=== PATIENT | female | born 2000 | race Caucasian/White ===

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

== ENCOUNTER 2018-03-20 12:34 | Inpatient (IN) | payer OTHER ==
[2018-03-20] MEDS ORDERED: SODIUM CHLORIDE 0.9% 1,000 ML IV STA ×2 (13:44)
[2018-03-20] MEDS ORDERED: KETOROLAC 30 MG/ML 1 ML VIAL IVP STA (13:44)
--- NOTE | 2018-03-20 13:46 | ED ---
Recheck HPI - General Chief Complaint: Recheck/Abnormal Lab/Rx Stated Complaint: Hyperglycemia Time Seen by Provider: 03/20/18 13:30 Source: patient, family, RN notes reviewed, old records reviewed Mode of arrival: ambulatory Limitations: no limitations - History of Present Illness Initial Comments: Patient is a 17-year-old female presents emergency Department with chief complaint of ketones in her urine and high blood sugar levels. She reports that she's been feeling ill complaining of left-sided abdominal pain for the past 2 days. She took her blood sugar this morning was 350. The last time she is in DKA she had similar blood sugars around 350 to 250s. She states she checked her urine today and there she had 4+ ketones in her urine. She reports she's had no diarrhea or vomiting. She states that she has had no chest pain shortness of breath or painful urination. She does have an IUD last menstrual period was in the middle of last month. She reports there just irregular. She states that she typically does get left-sided abdominal pain and occasional chest pain which she is in DKA. She is not corrected with insulin yet today. - Related Data Home Medications Medication Instructions Recorded Confirmed Insulin Aspart [NovoLOG Flexpen] See Protocol SQ AC-TID 09/06/16 03/20/18 ALPRAZolam [Xanax] 0.25 mg PO DAILY PRN 07/18/17 03/20/18 lamoTRIgine [LaMICtal] 25 mg PO HS 07/18/17 03/20/18 Insulin Glargine,Hum.rec.anlog 30 unit SQ DAILY 03/20/18 03/20/18 [Basaglar Kwikpen U-100] busPIRone HCL 15 mg PO BID 03/20/18 03/20/18 Allergies Allergy/AdvReac Type Severity Reaction Status Date / Time insulin detemir Allergy Rash/Hives Verified 03/20/18 13:39 [From Levemir] Sulfa (Sulfonamide Allergy Rash/Hives Verified 03/20/18 13:39 Antibiotics) Review of Systems ROS Statement: Those systems with pertinent positive or pertinent negative responses have been documented in the HPI. ROS Other: All systems not noted in ROS Statement are negative. Past Medical History Past Medical History: Diabetes Mellitus, GERD/Reflux Additional Past Medical History / Comment(s): depression/anxiety History of Any Multi-Drug Resistant Organisms: None Reported Past Surgical History: No Surgical Hx Reported Past Psychological History: Anxiety, Bipolar, Depression Smoking Status: Never smoker Past Alcohol Use History: None Reported Past Drug Use History: Marijuana - Past Family History Mother Additional Family Medical History / Comment(s): anxiety, depression, migraines, lower esophageal spasms General Exam - General Exam Comments Initial Comments: This is a 17-year-old female. Alert and oriented. No acute distress. Limitations: no limitations General appearance: alert, in no apparent distress Head exam: Present: atraumatic, normocephalic, normal inspection Eye exam: Present: normal appearance, PERRL, EOMI. Absent: scleral icterus, conjunctival injection, periorbital swelling ENT exam: Present: normal exam, mucous membranes moist Neck exam: Present: normal inspection. Absent: tenderness, meningismus, lymphadenopathy Respiratory exam: Present: normal lung sounds bilaterally. Absent: respiratory distress, wheezes, rales, rhonchi, stridor Cardiovascular Exam: Present: regular rate, normal rhythm, normal heart sounds. Absent: systolic murmur, diastolic murmur, rubs, gallop, clicks GI/Abdominal exam: Present: soft, tenderness (Minimal left upper quadrant tenderness.), normal bowel sounds. Absent: distended, guarding, rebound, rigid Extremities exam: Present: normal inspection, full ROM, normal capillary refill. Absent: tenderness, pedal edema, joint swelling, calf tenderness Back exam: Present: normal inspection Neurological exam: Present: alert, oriented X3, CN II-XII intact Psychiatric exam: Present: normal affect, normal mood Course Vital Signs 03/20/18 03/20/18 13:17 14:12 Temperature 98.1 F 97.9 F Pulse Rate 83 75 Respiratory 20 16 Rate Blood Pressure 113/80 121/79 O2 Sat by Pulse 100 99 Oximetry Medical Decision Making - Medical Decision Making 17-year-old female type I diabetic presents emergency murmurs day with elevated blood sugar 350 today. She reports she's been feeling nauseated. No specific vomiting. She states is more fatigued. She reports she's had some dull left upper quadrant abdominal pain. These are all symptoms and signs that she started have DKA. Patient checked her urine today does have 4+ ketones in her urine. Patient was given a liter bolus, and laboratory obtained. Patient has a mild decrease in her CO2 of 20. 4+ ketones and 4+ glucose within her urine. Patient did have a positive acetone. Patient was given insulin bolus, started on DKA protocol. At this time and that the Patient under Dr. Winkler. - Lab Data Result diagrams: 03/20/18 13:39 03/20/18 13:39 Lab Results 03/20/18 03/20/18 03/20/18 Range/Units 13:38 13:39 13:39 WBC 7.0 (4.0-11.0) k/uL RBC 4.99 (3.80-5.40) m/uL Hgb 14.8 (11.4-16.0) gm/dL Hct 45.1 (34.0-46.0) % MCV 90.4 (80.0-100.0) fL MCH 29.7 (25.0-35.0) pg MCHC 32.9 (31.0-37.0) g/dL RDW 13.1 (11.5-15.5) % Plt Count 298 (150-450) k/uL Neutrophils % 57 % Lymphocytes % 33 % Monocytes % 4 % Eosinophils % 4 % Basophils % 1 % Neutrophils # 4.0 (1.3-7.7) k/uL Lymphocytes # 2.3 (1.0-4.8) k/uL Monocytes # 0.3 (0-1.0) k/uL Eosinophils # 0.3 (0-0.7) k/uL Basophils # 0.1 (0-0.2) k/uL Sodium 140 (137-145) mmol/L Potassium 4.4 (3.5-5.1) mmol/L Chloride 103 (98-107) mmol/L Carbon Dioxide 20 L (22-30) mmol/L Anion Gap 17 mmol/L BUN 13 (7-17) mg/dL Creatinine 0.59 (0.52-1.04) mg/dL Est GFR (CKD-EPI)AfAm >90 (>60 ml/min/1.73 sqM) Est GFR (CKD-EPI)NonAf >90 (>60 ml/min/1.73 sqM) Glucose 314 H (74-99) mg/dL POC Glucose (mg/dL) 292 H (75-99) mg/dL POC Glu Software Support Representative ID Kan Resendiz Calcium 10.5 H (8.4-10.2) mg/dL Total Bilirubin 1.0 (0.2-1.3) mg/dL AST 13 L (14-36) U/L ALT 20 (9-52) U/L Alkaline Phosphatase 91 (38-126) U/L Total Protein 7.8 (6.3-8.2) g/dL Albumin 4.9 (3.5-5.0) g/dL Amylase 49 (30-110) U/L Lipase 32 (23-300) U/L Urine Color Urine Appearance (Clear) Urine pH (5.0-8.0) Ur Specific Amo (1.001-1.035) Urine Protein (Negative) Urine Glucose (UA) (Negative) Urine Ketones (Negative) Urine Blood (Negative) Urine Nitrite (Negative) Urine Bilirubin (Negative) Urine Urobilinogen (<2.0) mg/dL Ur Leukocyte Esterase (Negative) Urine RBC (0-5) /hpf Urine WBC (0-5) /hpf Ur Squamous Epith Cells (0-4) /hpf Urine HCG, Qual (Not Detectd) Acetone, Qual Positive (Negative) 03/20/18 03/20/18 Range/Units 14:28 14:28 WBC (4.0-11.0) k/uL RBC (3.80-5.40) m/uL Hgb (11.4-16.0) gm/dL Hct (34.0-46.0) % MCV (80.0-100.0) fL MCH (25.0-35.0) pg MCHC (31.0-37.0) g/dL RDW (11.5-15.5) % Plt Count (150-450) k/uL Neutrophils % % Lymphocytes % % Monocytes % % Eosinophils % % Basophils % % Neutrophils # (1.3-7.7) k/uL Lymphocytes # (1.0-4.8) k/uL Monocytes # (0-1.0) k/uL Eosinophils # (0-0.7) k/uL Basophils # (0-0.2) k/uL Sodium (137-145) mmol/L Potassium (3.5-5.1) mmol/L Chloride (98-107) mmol/L Carbon Dioxide (22-30) mmol/L Anion Gap mmol/L BUN (7-17) mg/dL Creatinine (0.52-1.04) mg/dL Est GFR (CKD-EPI)AfAm (>60 ml/min/1.73 sqM) Est GFR (CKD-EPI)NonAf (>60 ml/min/1.73 sqM) Glucose (74-99) mg/dL POC Glucose (mg/dL) (75-99) mg/dL POC Glu Software Support Representative ID Calcium (8.4-10.2) mg/dL Total Bilirubin (0.2-1.3) mg/dL AST (14-36) U/L ALT (9-52) U/L Alkaline Phosphatase (38-126) U/L Total Protein (6.3-8.2) g/dL Albumin (3.5-5.0) g/dL Amylase (30-110) U/L Lipase (23-300) U/L Urine Color Light Yellow Urine Appearance Clear (Clear) Urine pH 6.0 (5.0-8.0) Ur Specific Amo 1.037 H (1.001-1.035) Urine Protein 2+ H (Negative) Urine Glucose (UA) 4+ H (Negative) Urine Ketones 4+ H (Negative) Urine Blood Negative (Negative) Urine Nitrite Negative (Negative) Urine Bilirubin Negative (Negative) Urine Urobilinogen <2.0 (<2.0) mg/dL Ur Leukocyte Esterase Negative (Negative) Urine RBC 1 (0-5) /hpf Urine WBC 1 (0-5) /hpf Ur Squamous Epith Cells 3 (0-4) /hpf Urine HCG, Qual Not Detected (Not Detectd) Acetone, Qual (Negative) Disposition Clinical Impression: DKA (diabetic ketoacidoses) Disposition: HOME SELF-CARE Condition: Good Is patient prescribed a controlled substance at d/c from ED?: No Referrals: None,Stated [Primary Care Provider] - 1-2 days Time of Disposition: 15:47
[2018-03-20 13:55] LABS: Glucose,Whole Blood 292 mg/dL (75-99)
[2018-03-20 14:10] LABS: Basophils # (A) 0.1 k/uL (0-0.2); Basophils % (A) 1 %; Eosinophils # (A) 0.3 k/uL (0-0.7); Eosinophils % (A) 4 %; HCT 45.1 % (34.0-46.0); HGB 14.8 gm/dL (11.4-16.0); Lymphocytes # (A) 2.3 k/uL (1.0-4.8); Lymphocytes % (A) 33 %; MCH 29.7 pg (25.0-35.0); MCHC 32.9 g/dL (31.0-37.0); MCV 90.4 fL (80.0-100.0); Mean Platelet Volume 7.5; Monocytes # (A) 0.3 k/uL (0-1.0); Monocytes % (A) 4 %; Neutrophils % (A) 57 %; Platelet Count 298 k/uL (150-450); RBC 4.99 m/uL (3.80-5.40); RDW 13.1 % (11.5-15.5)
[2018-03-20 15:11] LABS: ALT 20 U/L (9-52); AST 13 U/L (14-36); Albumin 4.9 g/dL (3.5-5.0); Alkaline Phosphatase 91 U/L (38-126); Amylase 49 U/L (30-110); Anion Gap 17 mmol/L; Blood Urea Nitrogen 13 mg/dL (7-17); Calcium 10.5 mg/dL (8.4-10.2); Carbon Dioxide 20 mmol/L (22-30); Chloride 103 mmol/L (98-107); Glucose 314 mg/dL (74-99); Lipase 32 U/L (23-300); Potassium 4.4 mmol/L (3.5-5.1); Sodium 140 mmol/L (137-145); Total Protein 7.8 g/dL (6.3-8.2)
[2018-03-20 15:11] LABS: Appearance,Urine Clear (Clear); Bilirubin,Urine Negative (Negative); Blood,Urine Negative (Negative); Color,Urine Light Yellow; Glucose,Urine (UA) 4+ (Negative); Leukocyte Esterase,Urine Negative (Negative); Nitrite,Urine Negative (Negative); Protein,Urine 2+ (Negative); RBC,Urine 1 /hpf (0-5); Specific Gravity,Urine 1.037 (1.001-1.035); Squamous Epithelial Cell,Urine 3 /hpf (0-4); Urobilinogen,Urine <2.0 mg/dL (<2.0); WBC,Urine 1 /hpf (0-5)
[2018-03-20] MEDS ORDERED: Magnesium Replacement Protocol 1 EACH MISC MISCELLANE PRN (15:23)
[2018-03-20] MEDS ORDERED: Potassium Replacement Protocol 1 EACH MISC MISCELLANE PRN (15:23)
[2018-03-20] MEDS ORDERED: INSULIN REGULAR BOLUS (FROM DRIP BAG) IV ONE (15:23)
[2018-03-20 15:30] LABS: Ketones,Urine 4+ (Negative)
[2018-03-20] MEDS ORDERED: INSULIN REGULAR 100 UNIT in SODIUM CHLORIDE 0.9% 100 ML IV SCH (15:30)
[2018-03-20] MEDS ORDERED: SODIUM CHLORIDE 0.9% 1,000 ML IV SCH (15:30)
[2018-03-20] MEDS ORDERED: ONDANSETRON 4 MG/2 ML VIAL IVP STA (15:45)
[2018-03-20] MEDS ORDERED: ONDANSETRON 4 MG/2 ML VIAL IVP PRN (15:47)
[2018-03-20] MEDS ORDERED: IBUPROFEN 400 MG TAB PO PRN (15:47)
[2018-03-20] MEDS ORDERED: NALOXONE 0.4 MG/ML 1 ML VIAL IV PRN (15:47)
[2018-03-20] MEDS ORDERED: KETOROLAC 30 MG/ML 1 ML VIAL IVP PRN (15:47)
[2018-03-20] MEDS ORDERED: ACETAMINOPHEN TAB 325 MG TAB PO PRN (15:47)
[2018-03-20] MEDS ORDERED: ALPRAZolam 0.25 MG TAB PO PRN (15:51)
[2018-03-20] MEDS ORDERED: D5-0.45% NACL WITH KCL 20MEQ/L 1,000 ML IV SCH (16:00)
[2018-03-20 16:42] LABS: Glucose,Whole Blood 205 mg/dL (75-99)
--- NOTE | 2018-03-20 17:29 | P.HPIM ---
History of Present Illness H&P Date: 03/20/18 Chief Complaint: abdominal pain Patient is a 17-year-old female with a history of diabetes mellitus type 1 diagnosed at age 13 currently controlled with Lantus 30 units in the morning, carb counting, and corrective insulin, he also has a history of bipolar 2 with depression and anxiety. She presented to the hospital with complaints of abdominal pain. In the ER she underwent an extensive evaluation. Her vital signs within normal limits. Laboratory analysis was consistent with DKA. She was found have 4+ ketones in her urine acetone was positive. Anion gap was 17. She was given 1 L of normal saline in the ER and was started on an insulin drip. We were asked to admit her to the selective care unit. Patient seen and examined at bedside in the emergency department. She reports that yesterday she injected her Lantus as normal in the morning. She then started having sugars that were high for her anywhere from 08/24/2019. She began feeling abnormal. She states that she feels she may have injected into affect is positive were inappropriately injected. She felt hot nauseous all day yesterday. She increased her mouth correction shots and attempted to increase her fluid intake. This morning she woke up and her blood sugar was 344. She then tested her urine and found positive ketones. She started having her typical signs of DKA which include left-sided flank pain that wraps around to the front of her stomach and nausea. She does not give herself her Lantus injection today and presented immediately to the hospital. She reports that her sugars typically run 180-220. She feels symptomatically hypoglycemic at a blood sugar of 140 or less. She's had diabetes age of 13. Up until one year ago she was seen at the endocrinology clinic [facility]. She now sees Dr. Miller out of Dr. Leiva's office. She reports no history of diabetic retinopathy or nephropathy. She denies any recent cough, cold, fever, flu, or changes in diet. She denies any chest pain, shortness of breath, nausea, or vomiting at this point in time. After receiving 1 L of fluid she is feeling much improved. Review of Systems Pertinent positives and negatives as discussed in HPI, a complete review of systems was performed and all other systems are negative. Past Medical History Past Medical History: Diabetes Mellitus, GERD/Reflux Additional Past Medical History / Comment(s): depression/anxiety History of Any Multi-Drug Resistant Organisms: None Reported Past Surgical History: No Surgical Hx Reported Past Psychological History: Anxiety, Bipolar, Depression Smoking Status: Never smoker Past Alcohol Use History: None Reported Past Drug Use History: Marijuana Additional History: Lives with her mother, not currently employed - Past Family History Mother Additional Family Medical History / Comment(s): anxiety, depression, migraines, lower esophageal spasms Medications and Allergies Home Medications Medication Instructions Recorded Confirmed Type Insulin Aspart [NovoLOG Flexpen] See Protocol SQ AC-TID 09/06/16 03/20/18 History ALPRAZolam [Xanax] 0.25 mg PO DAILY PRN 07/18/17 03/20/18 History lamoTRIgine [LaMICtal] 25 mg PO HS 07/18/17 03/20/18 History Insulin Glargine,Hum.rec.anlog 30 unit SQ DAILY 03/20/18 03/20/18 History [Basaglar Kwikpen U-100] busPIRone HCL 15 mg PO BID 03/20/18 03/20/18 History Allergies Allergy/AdvReac Type Severity Reaction Status Date / Time insulin detemir Allergy Rash/Hives Verified 03/20/18 13:39 [From Levemir] Sulfa (Sulfonamide Allergy Rash/Hives Verified 03/20/18 13:39 Antibiotics) Physical Exam Osteopathic Statement: *. No significant issues noted on an osteopathic structural exam other than those noted in the History and Physical/Consult. Vitals: Vital Signs Temp Pulse Resp BP Pulse Ox 03/20/18 17:00 98.7 F 67 16 118/69 98 03/20/18 16:07 99 F 86 18 112/65 99 03/20/18 14:12 97.9 F 75 16 121/79 99 03/20/18 13:17 98.1 F 83 20 113/80 100 Intake and Output 03/20/18 03/20/18 03/20/18 06:59 14:59 22:59 Intake Total 6.148 Balance 6.148 Intake: Intake, IV Titration 6.148 Amount Insulin Regular 100 unit 6.148 In Sodium Chloride 0.9% 100 ml @ 0.1 UNITS/KG/HR 6.36 mls/hr IV .[id number] [facility] Rx#:[id number] Other: Weight 63.004 kg General: Ill appearing, mild distress, appears at stated age, normal weight Derm: no unusual rashes/lesions no unusual ecchymoses, warm, dry Head: atraumatic, normocephalic, symmetric Eyes: EOMI, no lid lag, anicteric sclera, pupils equal round reactive to light ENT: Nose and ears atraumatic, no thrush, no pharyngeal erythema Neck: No thyromegaly, no cervical lymphadenopathy, trachea midline, supple Mouth: no lip lesion, dry mucous membranes Cardiovascular: S1S2 reg, no murmur, positive posterior tibial pulse bilateral, no edema, capillary refill less than 2 seconds Lungs: CTA bilateral, no rhonchi, no rales , no accessory muscle use Abdominal: soft, tenderness to palpation left flank and. Emboli:, no guarding, no appreciable organomegaly, normal bowel sounds Ext: no gross muscle atrophy, muscle strength 5 out of 5 in all 4 extremities grossly, no contractures, Neuro: CN II-XI grossly intact, light touch intact all 4 extremities, finger to nose within normal limits, Psych: Alert, oriented, appropriate affect Results CBC & Chem 7: 03/20/18 13:39 03/20/18 13:39 Labs: Abnormal Lab Results - Last 24 Hours (Table) 03/20/18 03/20/18 03/20/18 Range/Units 13:38 13:39 14:28 Carbon Dioxide 20 L (22-30) mmol/L Glucose 314 H (74-99) mg/dL POC Glucose (mg/dL) 292 H (75-99) mg/dL Calcium 10.5 H (8.4-10.2) mg/dL AST 13 L (14-36) U/L Ur Specific [place] 1.037 H (1.001-1.035) Urine Protein 2+ H (Negative) Urine Glucose (UA) 4+ H (Negative) Urine Ketones 4+ H (Negative) 03/20/18 Range/Units 16:37 Carbon Dioxide (22-30) mmol/L Glucose (74-99) mg/dL POC Glucose (mg/dL) 205 H (75-99) mg/dL Calcium (8.4-10.2) mg/dL AST (14-36) U/L Ur Specific [place] (1.001-1.035) Urine Protein (Negative) Urine Glucose (UA) (Negative) Urine Ketones (Negative) Thrombosis Risk Factor Assmnt - DVT/VTE Prophylaxis DVT/VTE Prophylaxis: Low risk, early ambulation encouraged Assessment and Plan Assessment: Mild DKA - Continue with DKA protocol -Repeat basic metabolic profile now, if anion gap is closed then would consider transition off insulin drip -Patient is ALLERGIC to Levemir and mother will bring in her Lantus from home -Follow blood sugars every hour -Decrease insulin drip to 4 units per hour -Follow basic metabolic profile -Check hemoglobin A1c Diabetes mellitus type 1 -Treatment of DKA as outlined above Bipolar 2 -Continue with home medications The patient is admitted with an anticipated greater than 2 midnight stay for evaluation of DKA. Surrogate decision-maker: Mother-Hellen CODE STATUS: Full DVT prophylaxis: SCDs and early ambulation Discussed with: Patient, mother, ED physician, and ED nursing Anticipated discharge date: 24-[address]: Home A total of 65 minutes was spent on the care of this complex patient more than 50 % of the time was spent in counseling and care coordination.
[2018-03-20 17:54] LABS: Glucose,Whole Blood 156 mg/dL (75-99)
[2018-03-20 18:51] LABS: Anion Gap 12 mmol/L; Blood Urea Nitrogen 13 mg/dL (7-17); Carbon Dioxide 23 mmol/L (22-30); Chloride 107 mmol/L (98-107); Glucose 142 mg/dL (74-99); Phosphorus 2.3 mg/dL (2.5-4.5); Sodium 142 mmol/L (137-145)
[2018-03-20 19:05] LABS: Anion Gap 11 mmol/L; Blood Urea Nitrogen 13 mg/dL (7-17); Calcium 9.6 mg/dL (8.4-10.2); Carbon Dioxide 23 mmol/L (22-30); Chloride 108 mmol/L (98-107); Glucose 145 mg/dL (74-99); Phosphorus 2.3 mg/dL (2.5-4.5); Sodium 142 mmol/L (137-145)
[2018-03-20 19:05] LABS: Glucose,Whole Blood 215 mg/dL (75-99)
[2018-03-20] MEDS: SODIUM CHLORIDE 0.45% 1,000 ML IV SCH (20:06)
[2018-03-20] MEDS: INSULIN ASPART 100 UNIT/ML 1 ML 10 ML VIAL SQ SCH (20:28)
[2018-03-20] MEDS: lamoTRIgine 25 MG TAB PO SCH (20:33)
[2018-03-20] MEDS: busPIRone HCl 10 MG TAB PO SCH (20:49)
[2018-03-20 20:50] LABS: Glucose,Whole Blood 181 mg/dL (75-99)
[2018-03-20 22:30] LABS: Anion Gap 10 mmol/L; Blood Urea Nitrogen 17 mg/dL (7-17); Calcium 9.4 mg/dL (8.4-10.2); Carbon Dioxide 21 mmol/L (22-30); Chloride 109 mmol/L (98-107); Glucose 166 mg/dL (74-99); Sodium 140 mmol/L (137-145)
[2018-03-20 22:40] LABS: Glucose,Whole Blood 176 mg/dL (75-99)
[2018-03-21 01:28] LABS: Glucose,Whole Blood 199 mg/dL (75-99)
[2018-03-21] MEDS: INSULIN ASPART 100 UNIT/ML 1 ML 10 ML VIAL SQ SCH ×2 (01:44→07:26)
[2018-03-21] MEDS: SODIUM CHLORIDE 0.45% 1,000 ML IV SCH ×2 (02:00→09:23)
[2018-03-21 02:53] LABS: Glucose,Whole Blood 179 mg/dL (75-99)
[2018-03-21 04:26] LABS: Hemoglobin A1C 11.1 % (4.0-6.0)
[2018-03-21 04:56] LABS: Glucose,Whole Blood 147 mg/dL (75-99)
[2018-03-21 05:41] VITALS: RESP 16
[2018-03-21 06:05] LABS: HCT 36.6 % (34.0-46.0); HGB 12.1 gm/dL (11.4-16.0); MCH 30.2 pg (25.0-35.0); MCV 91.5 fL (80.0-100.0); Mean Platelet Volume 6.9; Platelet Count 267 k/uL (150-450); RDW 13.1 % (11.5-15.5)
[2018-03-21 06:17] LABS: Anion Gap 7 mmol/L; Blood Urea Nitrogen 16 mg/dL (7-17); Calcium 9.3 mg/dL (8.4-10.2); Carbon Dioxide 23 mmol/L (22-30); Chloride 108 mmol/L (98-107); Glucose 132 mg/dL (74-99); Potassium 4.3 mmol/L (3.5-5.1); Sodium 138 mmol/L (137-145)
[2018-03-21 07:16] LABS: Glucose,Whole Blood 157 mg/dL (75-99)
[2018-03-21] MEDS ORDERED: Insulin Glargine,Hum.Rec.Anlog [Basaglar Kwikpen U-100] SQ SCH (09:00)
[2018-03-21] MEDS ORDERED: PANTOPRAZOLE 40 MG/10 ML VIAL IV SCH (09:00)
[2018-03-21 09:02] LABS: Glucose,Whole Blood 202 mg/dL (75-99)
[2018-03-21 09:18] VITALS: BP 130/76; PULSE 71; TEMP 98
[2018-03-21] MEDS: lamoTRIgine 25 MG TAB PO SCH (09:21)
[2018-03-21] MEDS: busPIRone HCl 10 MG TAB PO SCH (09:22)
--- NOTE | 2018-03-21 09:30 | P.DS ---
Providers Date of admission: 03/20/18 15:59 Expected date of discharge: 03/21/18 Attending physician: Kandace Heath DO Primary care physician: Stated None Hospital Course: Discharge Diagnosis: Mild DKA Diabetes mellitus type 1 Bipolar disorder Proteinuria Hospital Course: Patient is a 17-year-old female with a history of diabetes mellitus type 1 diagnosed at age 13 currently controlled with Lantus 30 units in the morning, carb counting, and corrective insulin, she also has a history of bipolar 2 with depression and anxiety. She presented to the hospital with complaints of abdominal pain. In the ER she underwent an extensive evaluation. Her vital signs within normal limits. Laboratory analysis was consistent with DKA. She was found have 4+ ketones in her urine acetone was positive. Anion gap was 17. She was given 1 L of normal saline in the ER and was started on an insulin drip. We were asked to admit her to the selective care unit. After several hours on insulin drip per anion gap was resolved. She was given Lantus 10 unit and started on sliding scale insulin. She was maintained on aggressive fluid hydration. By the morning after admission her DKA had fully resolved. Her abdominal pain was resolved. She was feeling back to her normal self. Her condition had improved faster than anticipated and she was therefore able to be discharged on less than 2 midnight. 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 I have given her a referral to Dr. Oliva Gordon. She sees Dr. Hubbard with endocrinology. Her HgB A1C was 11.1 (11.7 in [facility]) I have asked her to see her concrete spreader in 1-2 weeks. Patient seen and examined at bedside. No chest pain, shortness of breath, nausea, or vomiting. Abdominal pain is totally resolved. She is feeling well and wants to go home. Vital signs reviewed and stable. General: non toxic, no distress, appears at stated age Derm: warm, dry Head: atraumatic, normocephalic, symmetric Eyes: EOMI, no lid lag, anicteric sclera Mouth: no lip lesion, mucus membranes moist Cardiovascular: S1S2 reg, no murmur, positive posterior tibial pulse bilateral, Lungs: CTA bilateral, no rhonchi, no rales , no accessory muscle use Abdominal: soft, nontender to palpation, no guarding, no appreciable organomegaly Ext: no gross muscle atrophy, no edema, no contractures Neuro: CN II-XI grossly intact, no focal neuro deficits Psych: Alert, oriented, appropriate affect A total of 35 minutes of time were spent preparing this complex discharge summary . Patient Condition at Discharge: Good Plan - Discharge Summary Discharge Rx Participant: No New Discharge Prescriptions: Continue Insulin Aspart [NovoLOG Flexpen] See Protocol SQ AC-TID ALPRAZolam [Xanax] 0.25 mg PO DAILY PRN PRN Reason: Anxiety lamoTRIgine [LaMICtal] 25 mg PO HS busPIRone HCL 15 mg PO BID Insulin Glargine,Hum.rec.anlog [Basaglar Kwikpen U-100] 30 unit SQ DAILY Discharge Medication List Insulin Aspart [NovoLOG Flexpen] See Protocol SQ AC-TID 09/06/16 [History] ALPRAZolam [Xanax] 0.25 mg PO DAILY PRN 07/18/17 [History] lamoTRIgine [LaMICtal] 25 mg PO HS 07/18/17 [History] Insulin Glargine,Hum.rec.anlog [Basaglar Kwikpen U-100] 30 unit SQ DAILY [History] busPIRone HCL 15 mg PO BID 03/20/18 [History] Follow up Appointment(s)/Referral(s): None,Stated [Primary Care Provider] - 1-2 days
[2018-03-21 10:53] VITALS: BMI 24.0
== END 2018-03-21 10:38 | disposition home or self-care (01) | DRG 638 ==
LOC: EC 12:34 → 6SEL 15:59
PROVIDERS: ADMIT Internal Medicine; ATTEND Internal Medicine
DX: E10.10 Type 1 diabetes mellitus with ketoacidosis without coma (principal); F31.81 Bipolar II disorder; F41.9 Anxiety disorder, unspecified; K21.9 Gastro-esophageal reflux disease without esophagitis; Z79.4 Long term (current) use of insulin; Z81.8 Family history of other mental and behavioral disorders; Z79.899 Other long term (current) drug therapy; Z88.2 Allergy status to sulfonamides; Z88.8 Allergy status to other drugs, medicaments and biological substances; Z71.3 Dietary counseling and surveillance; Z83.79 Family history of other diseases of the digestive system; R80.9 Proteinuria, unspecified
CPT/HCPCS: 36415; 80048; 80051; 80053; 81001; 81025; 82009; 82150; 82565; 82947; 83036; 83690; 84100; 84520; 85025; 85027; 96361; 96365; 96366; 96375; 99285

== ENCOUNTER 2021-05-20 18:56 | Emergency (ER) | payer OTHER ==
[2021-05-20 19:42] VITALS: TEMP 98.7
[2021-05-20] MEDS ORDERED: ONDANSETRON 4 MG/2 ML VIAL IVP STA (20:17)
[2021-05-20] MEDS ORDERED: SODIUM CHLORIDE 0.9% 1,000 ML IV STA (20:17)
--- NOTE | 2021-05-20 20:20 | ED ---
General Adult HPI - General Chief complaint: Nausea/Vomiting/Diarrhea Stated complaint: Vomiting, not eating, type 1 diabetic Time Seen by Provider: 05/20/21 20:08 Source: patient, family (mom), RN notes reviewed, old records reviewed Mode of arrival: ambulatory Limitations: no limitations - History of Present Illness Initial comments: The 20-year-old female, alert and oriented 4, presents to the emergency room with complaints of 8 days of body aches nausea vomiting and generalized weakness. She states that she is an insulin-dependent diabetic and has an insulin pump. She states her sugars have been occasionally running low because she has not been eating very well. She states that she has been having nausea and vomiting. She states mostly nausea but the other day she has vomiting with dry heaves. She denies any fevers or recent illnesses. She denies any cough sore throat. She states that she did get bitten by a dog on and was seen and prescribed antibiotics and had tetanus shot updated. She has 2 puncture wounds to her right wrist volar surface and dorsal surface with no signs of erythema or drainage. Patient states that she was bitten on boyfriend's dogs were fighting she states that the bite was very disturbing to her she tried to break it up. Mom at bedside states that the dog bite has been worsening her anxiety and believes that this may be why she has not been eating well. She also has a history of bipolar. She states that she does vape but does not smoke cigarettes. She states that she has an IUD and no chance of -: days(s) (8) Severity scale (1-10): 5 Quality: aching Consistency: constant Improves with: none Worsens with: none Associated Symptoms: loss of appetite, nausea/vomiting, weakness, other (body aches) Treatments Prior to Arrival: none - Related Data Home Medications Medication Instructions Recorded Confirmed ALPRAZolam [Xanax] 0.25 mg PO DAILY PRN 07/18/17 05/20/21 Insulin Aspart (For Pump) [NovoLOG 0.01 unit SQ-PUMP CONTINUOUS 05/20/21 05/20/21 (For Pump)] Allergies Allergy/AdvReac Type Severity Reaction Status Date / Time insulin detemir Allergy Rash/Hives Verified 05/20/21 21:43 [From Levemir] Sulfa (Sulfonamide Allergy Rash/Hives Verified 05/20/21 21:43 Antibiotics) Review of Systems ROS Statement: Those systems with pertinent positive or pertinent negative responses have been documented in the HPI. ROS Other: All systems not noted in ROS Statement are negative. Past Medical History Past Medical History: Diabetes Mellitus, GERD/Reflux Additional Past Medical History / Comment(s): bipolar 2-depression/anxiety . had implanted iud october 2017 History of Any Multi-Drug Resistant Organisms: None Reported Past Surgical History: No Surgical Hx Reported Additional Past Surgical History / Comment(s): IUD IMPLANTED Past Anesthesia/Blood Transfusion Reactions: No Reported Reaction Past Psychological History: Anxiety, Bipolar, Depression Smoking Status: Vaper Past Alcohol Use History: None Reported Past Drug Use History: Marijuana - Past Family History Mother Family Medical History: GERD/Reflux Additional Family Medical History / Comment(s): anxiety, depression, migraines, lower esophageal spasms, Father History Unknown: Yes General Exam Limitations: no limitations General appearance: alert, in no apparent distress Head exam: Present: atraumatic, normocephalic, normal inspection Eye exam: Present: normal appearance, EOMI ENT exam: Present: mucous membranes moist Neck exam: Present: normal inspection, full ROM. Absent: tenderness, meningismus, lymphadenopathy, thyromegaly Respiratory exam: Present: normal lung sounds bilaterally. Absent: respiratory distress, wheezes, rales, rhonchi, stridor Cardiovascular Exam: Present: regular rate, normal rhythm, normal heart sounds. Absent: systolic murmur, diastolic murmur, rubs, gallop, clicks GI/Abdominal exam: Present: soft, normal bowel sounds, other (Insulin pump left lower abdomen). Absent: distended, tenderness, guarding, rebound, rigid Extremities exam: Present: normal inspection, full ROM, normal capillary refill. Absent: tenderness, pedal edema, joint swelling, calf tenderness Back exam: Present: normal inspection, full ROM. Absent: tenderness, CVA tenderness (R), CVA tenderness (L), rash noted Neurological exam: Present: alert, oriented X3 Psychiatric exam: Present: normal affect, normal mood Skin exam: Present: warm, dry, intact, normal color. Absent: rash, cyanosis, diaphoretic, petechiae, pallor Course Vital Signs 05/20/21 05/20/21 19:38 22:28 Temperature 98.7 F Pulse Rate 95 59 L Respiratory 22 20 Rate Blood Pressure 103/75 100/70 O2 Sat by Pulse 98 98 Oximetry Medical Decision Making - Medical Decision Making Patient presents to the emergency room with poor oral intake and generalized fatigue. She recently suffered from an emotional been watching her boyfriend's dog fight. She states that she tried to break up a dog fight and was bitten on the right wrist. She was treated with antibiotics and tetanus shot when it occurred last . There is no evidence of erythema or any signs of infection at the site. CBC is unremarkable, electrolytes show glucose of 154. Urine is negative. Coronavirus test is negative. Patient states that she is feeling better after IV fluids. She received a liter of normal saline in the emergency room. Her abdomen is soft and nontender. Her mom thinks that this may be related to her anxiety and the recent dog bite. She was directed to return to the emergency room with any new or worsening symptoms and follow up with her primary care doctor next week. Patient and her mother agreeable to this plan of care. Case was discussed with Dr. Rasheed - Lab Data Result diagrams: 05/20/21 21:05 05/20/21 21:05 Lab Results 05/20/21 05/20/21 05/20/21 Range/Units 21:05 21:05 21:31 WBC 9.0 (3.8-10.6) k/uL RBC 4.22 (3.80-5.40) m/uL Hgb 13.2 (11.4-16.0) gm/dL Hct 37.9 (34.0-46.0) % MCV 89.8 (80.0-100.0) fL MCH 31.3 (25.0-35.0) pg MCHC 34.9 (31.0-37.0) g/dL RDW 12.9 (11.5-15.5) % Plt Count 330 (150-450) k/uL MPV 8.8 Neutrophils % 63 % Lymphocytes % 27 % Monocytes % 4 % Eosinophils % 4 % Basophils % 1 % Neutrophils # 5.7 (1.3-7.7) k/uL Lymphocytes # 2.5 (1.0-4.8) k/uL Monocytes # 0.4 (0-1.0) k/uL Eosinophils # 0.4 (0-0.7) k/uL Basophils # 0.1 (0-0.2) k/uL Sodium 136 L (137-145) mmol/L Potassium 3.8 (3.5-5.1) mmol/L Chloride 103 (98-107) mmol/L Carbon Dioxide 25 (22-30) mmol/L Anion Gap 8 mmol/L BUN 11 (7-17) mg/dL Creatinine 0.60 (0.52-1.04) mg/dL Est GFR (CKD-EPI)AfAm >90 (>60 ml/min/1.73 sqM) Est GFR (CKD-EPI)NonAf >90 (>60 ml/min/1.73 sqM) Glucose 154 H (74-99) mg/dL Calcium 10.0 (8.4-10.2) mg/dL Total Bilirubin 0.6 (0.2-1.3) mg/dL AST 19 (14-36) U/L ALT 11 (4-34) U/L Alkaline Phosphatase 56 (38-126) U/L Total Protein 7.2 (6.3-8.2) g/dL Albumin 4.3 (3.5-5.0) g/dL Amylase 52 (30-110) U/L Lipase 16 L (23-300) U/L TSH 0.995 (0.465-4.680) mIU/L Urine Color Urine Appearance (Clear) Urine pH (5.0-8.0) Ur Specific [place] (1.001-1.035) Urine Protein (Negative) Urine Glucose (UA) (Negative) Urine Ketones (Negative) Urine Blood (Negative) Urine Nitrite (Negative) Urine Bilirubin (Negative) Urine Urobilinogen (<2.0) mg/dL Ur Leukocyte Esterase (Negative) Urine RBC (0-5) /hpf Urine WBC (0-5) /hpf Ur Squamous Epith Cells (0-4) /hpf Urine Mucus (None) /hpf Urine HCG, Qual (Not Detectd) Coronavirus (PCR) Not Detected (Not Detectd) 05/20/21 05/20/21 Range/Units 21:38 21:38 WBC (3.8-10.6) k/uL RBC (3.80-5.40) m/uL Hgb (11.4-16.0) gm/dL Hct (34.0-46.0) % MCV (80.0-100.0) fL MCH (25.0-35.0) pg MCHC (31.0-37.0) g/dL RDW (11.5-15.5) % Plt Count (150-450) k/uL MPV Neutrophils % % Lymphocytes % % Monocytes % % Eosinophils % % Basophils % % Neutrophils # (1.3-7.7) k/uL Lymphocytes # (1.0-4.8) k/uL Monocytes # (0-1.0) k/uL Eosinophils # (0-0.7) k/uL Basophils # (0-0.2) k/uL Sodium (137-145) mmol/L Potassium (3.5-5.1) mmol/L Chloride (98-107) mmol/L Carbon Dioxide (22-30) mmol/L Anion Gap mmol/L BUN (7-17) mg/dL Creatinine (0.52-1.04) mg/dL Est GFR (CKD-EPI)AfAm (>60 ml/min/1.73 sqM) Est GFR (CKD-EPI)NonAf (>60 ml/min/1.73 sqM) Glucose (74-99) mg/dL Calcium (8.4-10.2) mg/dL Total Bilirubin (0.2-1.3) mg/dL AST (14-36) U/L ALT (4-34) U/L Alkaline Phosphatase (38-126) U/L Total Protein (6.3-8.2) g/dL Albumin (3.5-5.0) g/dL Amylase (30-110) U/L Lipase (23-300) U/L TSH (0.465-4.680) mIU/L Urine Color Yellow Urine Appearance Clear (Clear) Urine pH 7.0 (5.0-8.0) Ur Specific [place] 1.012 (1.001-1.035) Urine Protein 3+ H (Negative) Urine Glucose (UA) Trace H (Negative) Urine Ketones Negative (Negative) Urine Blood Negative (Negative) Urine Nitrite Negative (Negative) Urine Bilirubin Negative (Negative) Urine Urobilinogen <2.0 (<2.0) mg/dL Ur Leukocyte Esterase Negative (Negative) Urine RBC 1 (0-5) /hpf Urine WBC 6 H (0-5) /hpf Ur Squamous Epith Cells 3 (0-4) /hpf Urine Mucus Moderate H (None) /hpf Urine HCG, Qual Not Detected (Not Detectd) Coronavirus (PCR) (Not Detectd) Disposition Clinical Impression: Fatigue Disposition: HOME SELF-CARE Condition: Good Instructions (If sedation given, give patient instructions): Fatigue (ED) Additional Instructions: Follow-up with your primary care doctor next week. Return to the emergency room with any new or worsening symptoms. Is patient prescribed a controlled substance at d/c from ED?: No Referrals: Mariam Vidales MD [Primary Care Provider] - 1-2 days Time of Disposition: 22:55
[2021-05-20 21:22] LABS: ALT 11 U/L (4-34); AST 19 U/L (14-36); African American GFR (CKD) >90 (>60 ml/min/1.73 sqM); Albumin 4.3 g/dL (3.5-5.0); Alkaline Phosphatase 56 U/L (38-126); Amylase 52 U/L (30-110); Anion Gap 8 mmol/L; Blood Urea Nitrogen 11 mg/dL (7-17); Carbon Dioxide 25 mmol/L (22-30); Chloride 103 mmol/L (98-107); Glucose 154 mg/dL (74-99); Lipase 16 U/L (23-300); Non-African American GFR(CKD) >90 (>60 ml/min/1.73 sqM); Potassium 3.8 mmol/L (3.5-5.1); Sodium 136 mmol/L (137-145); Total Bilirubin 0.6 mg/dL (0.2-1.3); Total Protein 7.2 g/dL (6.3-8.2)
[2021-05-20 21:36] LABS: Basophils # (A) 0.1 k/uL (0-0.2); Basophils % (A) 1 %; Eosinophils # (A) 0.4 k/uL (0-0.7); Eosinophils % (A) 4 %; HCT 37.9 % (34.0-46.0); HGB 13.2 gm/dL (11.4-16.0); Lymphocytes # (A) 2.5 k/uL (1.0-4.8); Lymphocytes % (A) 27 %; MCH 31.3 pg (25.0-35.0); MCHC 34.9 g/dL (31.0-37.0); MCV 89.8 fL (80.0-100.0); Mean Platelet Volume 8.8; Monocytes # (A) 0.4 k/uL (0-1.0); Monocytes % (A) 4 %; Neutrophils # (A) 5.7 k/uL (1.3-7.7); Neutrophils % (A) 63 %; Platelet Count 330 k/uL (150-450); RBC 4.22 m/uL (3.80-5.40); RDW 12.9 % (11.5-15.5)
[2021-05-20 22:04] LABS: Appearance,Urine Clear (Clear); Bilirubin,Urine Negative (Negative); Blood,Urine Negative (Negative); Color,Urine Yellow; Glucose,Urine (UA) Trace (Negative); Ketones,Urine Negative (Negative); Leukocyte Esterase,Urine Negative (Negative); Mucus,Urine Moderate /hpf; Nitrite,Urine Negative (Negative); Protein,Urine 3+ (Negative); RBC,Urine 1 /hpf (0-5); Specific Gravity,Urine 1.012 (1.001-1.035); Squamous Epithelial Cell,Urine 3 /hpf (0-4); Urobilinogen,Urine <2.0 mg/dL (<2.0); WBC,Urine 6 /hpf (0-5)
[2021-05-20 22:30] VITALS: BP 100/70; PULSE 59; RESP 20
== END 2021-05-20 23:04 | disposition home or self-care (01) ==
LOC: EC 18:56
DX: R53.83 Other fatigue (principal); E11.9 Type 2 diabetes mellitus without complications; F31.81 Bipolar II disorder; F41.9 Anxiety disorder, unspecified; F12.90 Cannabis use, unspecified, uncomplicated; F17.290 Nicotine dependence, other tobacco product, uncomplicated; Z79.4 Long term (current) use of insulin
CPT/HCPCS: 36415; 80053; 84443; 82150; 83690; 85025; 81001; 81025; 87635; 99284; 96374; 96361; J2405

== ENCOUNTER 2023-05-27 12:15 | Emergency (ER) | payer OTHER ==
[2023-05-27 12:19] VITALS: BP 123/78; PULSE 83; RESP 20; TEMP 98.1
[2023-05-27 12:19] LABS: Glucose,Whole Blood 356 mg/dL (70-110)
[2023-05-27] MEDS ORDERED: ONDANSETRON ODT 4 MG TAB PO STA (13:40)
--- NOTE | 2023-05-27 13:42 | ED ---
Recheck HPI - General Chief Complaint: Recheck/Abnormal Lab/Rx Stated Complaint: Hyperglycemia Time Seen by Provider: 05/27/23 13:41 Source: patient, RN notes reviewed Mode of arrival: ambulatory Limitations: no limitations - History of Present Illness Initial Comments: patient is a 22-year-old female presented ER with the chief complaint of nausea and vomiting. Patient is a type I diabetic. patient states her sugars are trending downwards currently as they were 400 earlier. Patient denies any fevers or chills. - Related Data Home Medications Medication Instructions Recorded Confirmed ALPRAZolam [Xanax] 0.25 mg PO DAILY PRN 07/18/17 05/20/21 Insulin Aspart (For Pump) [NovoLOG 0.01 unit SQ-PUMP CONTINUOUS 05/20/21 05/20/21 (For Pump)] Allergies Allergy/AdvReac Type Severity Reaction Status Date / Time insulin detemir Allergy Rash/Hives Verified 05/27/23 12:18 [From Levemir] Sulfa (Sulfonamide Allergy Rash/Hives Verified 05/27/23 12:18 Antibiotics) Review of Systems ROS Statement: Those systems with pertinent positive or pertinent negative responses have been documented in the HPI. ROS Other: All systems not noted in ROS Statement are negative. Past Medical History Past Medical History: Diabetes Mellitus, GERD/Reflux Additional Past Medical History / Comment(s): bipolar 2-depression/anxiety . had implanted iud october 2017 History of Any Multi-Drug Resistant Organisms: None Reported Past Surgical History: No Surgical Hx Reported Additional Past Surgical History / Comment(s): IUD IMPLANTED Past Anesthesia/Blood Transfusion Reactions: No Reported Reaction Past Psychological History: Anxiety, Bipolar, Depression Smoking Status: Vaper Past Alcohol Use History: None Reported Past Drug Use History: Marijuana - Past Family History Mother Family Medical History: GERD/Reflux Additional Family Medical History / Comment(s): anxiety, depression, migraines, lower esophageal spasms, Father History Unknown: Yes General Exam - General Exam Comments Initial Comments: Visual Physical Exam Vital signs reviewed General: Well-appearing, nontoxic, no acute distress. Head: Normocephalic, atraumatic Eyes: PERRLA, EOMI ENT: Airway patent Chest: Nonlabored breathing Skin: No visual rash, normal skin tone Neuro: Alert and oriented 3 Musculoskeletal: No gross abnormalities Limitations: no limitations Course Vital Signs 05/27/23 12:16 Temperature 98.1 F Pulse Rate 83 Respiratory 20 Rate Blood Pressure 123/78 O2 Sat by Pulse 99 Oximetry Medical Decision Making - Medical Decision Making I performed the quick note portion of the exam. Electronically signed by Wood Salcedo PA-C - Lab Data Lab Results 05/27/23 05/27/23 Range/Units 12:18 13:58 POC Glucose (mg/dL) 356 H 181 H (70-110) mg/dL POC Glu [place] [employer] Hand Oliva Senior Jennifer Disposition Clinical Impression: Left against medical advice Disposition: LEFT AGAINST MEDICAL ADVICE Condition: Undetermined Is patient prescribed a controlled substance at d/c from ED?: No Referrals: Jorge Negro MD [Primary Care Provider] - 1-2 days Time of Disposition: 17:26
[2023-05-27 14:00] LABS: Glucose,Whole Blood 181 mg/dL (70-110)
== END 2023-05-27 14:04 | disposition left against medical advice (07) ==
LOC: EC 12:15
DX: Z53.29 Procedure and treatment not carried out because of patient's decision for other reasons (principal); E10.65 Type 1 diabetes mellitus with hyperglycemia; K21.9 Gastro-esophageal reflux disease without esophagitis; F41.9 Anxiety disorder, unspecified; F31.9 Bipolar disorder, unspecified; F17.290 Nicotine dependence, other tobacco product, uncomplicated; F12.90 Cannabis use, unspecified, uncomplicated; Z79.4 Long term (current) use of insulin; Z79.899 Other long term (current) drug therapy; Z88.2 Allergy status to sulfonamides; Z88.8 Allergy status to other drugs, medicaments and biological substances
CPT/HCPCS: 36415; 99283

== ENCOUNTER 2024-01-19 10:28 | Emergency (ER) | payer OTHER ==
--- NOTE | 2024-01-19 11:22 | ED ---
General Adult HPI - General Chief complaint: Anxiety Stated complaint: Anxiety Time Seen by Provider: 01/19/24 10:50 Source: patient, EMS, RN notes reviewed Mode of arrival: EMS Limitations: no limitations - History of Present Illness Initial comments: This is a 23-year-old female with a history of T1DM presents to the emergency department via EMS accompanied by her mother with a chief complaint of anxiety, abdominal pain and nausea. States that she took the first dose of an antipsychotic surprised by her primary care provider to aid in anxiety, krystal Cee. Patient states that she began a experiencing symptoms of chest pain, shortness of breath and severe nausea with multiple episodes of emesis which prompted her to call EMS. Currently, patient states that she is feeling nauseous and endorses bilateral lower abdominal pain and left flank pain. Additionally, patient states that over the past few days she has been experiencing increase in urinary frequency and urgency and has been taking [id number] UTI medications. Patient states that she has a history of DKA and has been hospitalized with her most recent being roughly 1 year ago. - Related Data Home Medications Medication Instructions Recorded Confirmed ALPRAZolam [Xanax] 0.25 mg PO DAILY PRN 07/18/17 05/20/21 Insulin Aspart (For Pump) [NovoLOG 0.01 unit SQ-PUMP CONTINUOUS 05/20/21 05/20/21 (For Pump)] Previous Rx's Medication Instructions Recorded Cephalexin [Keflex] 500 mg PO Q6HR #40 cap 01/19/24 Allergies Allergy/AdvReac Type Severity Reaction Status Date / Time insulin detemir Allergy Rash/Hives Verified 01/19/24 10:37 [From Levemir] Sulfa (Sulfonamide Allergy Rash/Hives Verified 01/19/24 10:37 Antibiotics) Review of Systems ROS Statement: Those systems with pertinent positive or pertinent negative responses have been documented in the HPI. ROS Other: All systems not noted in ROS Statement are negative. Past Medical History Past Medical History: Diabetes Mellitus, GERD/Reflux Additional Past Medical History / Comment(s): Type 1. Bipolar 2- depression/anxiety. IUD- October 2017. History of Any Multi-Drug Resistant Organisms: None Reported Past Surgical History: No Surgical Hx Reported Additional Past Surgical History / Comment(s): IUD IMPLANTED Past Anesthesia/Blood Transfusion Reactions: No Reported Reaction Past Psychological History: Anxiety, Bipolar, Depression Smoking Status: Vaper Past Alcohol Use History: Rare Past Drug Use History: Marijuana - Past Family History Mother Family Medical History: GERD/Reflux Additional Family Medical History / Comment(s): anxiety, depression, migraines, lower esophageal spasms, Father History Unknown: Yes General Exam Limitations: no limitations General appearance: alert, in no apparent distress Head exam: Present: atraumatic, normocephalic, normal inspection Eye exam: Present: normal appearance, PERRL, EOMI. Absent: scleral icterus, conjunctival injection, periorbital swelling ENT exam: Present: normal exam, mucous membranes moist Neck exam: Present: normal inspection. Absent: tenderness, meningismus, lymphadenopathy Respiratory exam: Present: normal lung sounds bilaterally. Absent: respiratory distress, wheezes, rales, rhonchi, stridor GI/Abdominal exam: Present: soft, tenderness (lower quadrant, bilateral), normal bowel sounds. Absent: distended, guarding, rebound, rigid Back exam: Present: normal inspection, full ROM, CVA tenderness (L). Absent: tenderness Neurological exam: Present: alert, oriented X3, CN II-XII intact Psychiatric exam: Present: normal affect, normal mood Course Vital Signs 01/19/24 01/19/24 01/19/24 10:29 11:35 13:46 Temperature 98.9 F 99.0 F Pulse Rate 78 80 93 Respiratory 17 17 16 Rate Blood Pressure 123/92 131/71 115/71 O2 Sat by Pulse 97 97 97 Oximetry Medical Decision Making - Medical Decision Making Was pt. sent in by a medical professional or institution (, PA, TAX MAP TECHNICIAN, urgent care, hospital, or fdc...) When possible be specific @ -No Did you speak to anyone other than the patient for history (EMS, parent, family, police, friend...)? What history was obtained from this source @ -The patient's mother at bedside states the patient recently took the newly prescribed medication this morning and she called her with symptoms of chest pain, shortness of breath and feelings of anxiety. Did you review nursing and triage notes (agree or disagree)? Why? @ -I reviewed and agree with nursing and triage notes Were old charts reviewed (outside hosp., previous admission, EMS record, old EKG, old radiological studies, urgent care reports/EKG's, fdc records)? Report findings @ -No old charts were reviewed Differential Diagnosis (chest pain, altered mental status, abdominal pain women, abdominal pain men, vaginal bleeding, weakness, fever, dyspnea, syncope, headache, dizziness, GI bleed, back pain, seizure, CVA, palpatations, mental health, musculoskeletal)? @ -Differential Abdominal Pain Women: Appendicitis, Cholecystitis, diverticulosis, ischemic bowel, pancreatitis, hepatitis, UTI, gastroenteritis, AAA, incarcerated hernia, bowel obstruction, constipation, inflammatory bowel, hepatitis, peptic ulcer disease, splenic infarction, perforated viscus, vulvitis, ovarian torsion, PID, kidney stone, placenta abruption, this is not meant to be an all-inclusive list EKG interpreted by me (3pts min.). @ -None X-rays interpreted by me (1pt min.). @ -None done CT interpreted by me (1pt min.). @ -CT of the abdomen pelvis with contrast reveals no evidence for obstructive uropathy or calculus, mild bladder wall thickening possibly due to underdistention. IUD within the endometrium. U/S interpreted by me (1pt. min.). @ -None done What testing was considered but not performed or refused? (CT, X-rays, U/S, labs)? Why? @ -None What meds were considered but not given or refused? Why? @ -None Did you discuss the management of the patient with other professionals (professionals i.e. , PA, TAX MAP TECHNICIAN, lab, RT, psych nurse, perinatal social worker, nursery rn, teacher, data officer, insurance case manager)? Give summary @ -No Was smoking cessation discussed for >3mins.? @ -No Was critical care preformed (if so, how long)? @ -No Were there social determinants of health that impacted care today? How? (Homelessness, low income, unemployed, alcoholism, drug addiction, transportation, low edu. Level, literacy, decrease access to med. care, halfway, rehab)? @ -No Was there de-escalation of care discussed even if they declined (Discuss DNR or withdrawal of care, Hospice)? DNR status @ -No What co-morbidities impacted this encounter? (DM, HTN, Smoking, COPD, CAD, Cancer, CVA, ARF, Chemo, Hep., AIDS, mental health diagnosis, sleep apnea, morbid obesity)? @ -None Was patient admitted / discharged? Hospital course, mention meds given and route, prescriptions, significant lab abnormalities, going to OR and other pertinent info. @ -23-year-old female with abdominal pain, nausea vomiting, and anxiety. On examination patient's vitals stable. With the patient, she states that she is feeling better this morning however still experiencing symptoms of nausea and bilateral abdominal pain. On examination she has lower abdominal pain and left- sided flank pain. Patient will be evaluated via laboratory studies including urinalysis and CT of the abdomen for concern of pyelonephritis. CBC, CMP unremarkable. Glucose 131. Urinalysis remarkable for acute infection including leukocyte Estrace, white blood cells, bacteria. hCG negative. Unremarkable for acute process. Patient will be provided with a dose of Rocephin in the emergency department and will be sent a prescription for Keflex to take for urinary tract infection. Distally she is provided with an additional dose of Reglan to aid in nausea. Recommend the patient follows up with her primary care provider who prescribed the medication that she does this morning for further evaluation. All questions answered at bedside and strict return parameters discussed with the patient she is verbalized understanding. Discussed with Dr. Hdez. Undiagnosed new problem with uncertain prognosis? @ -No Drug Therapy requiring intensive monitoring for toxicity (Heparin, Nitro, Insulin, Cardizem)? @ -No Were any procedures done? @ -No Diagnosis/symptom? @ -anxiety, UTI, abdominal pain Acute, or Chronic, or Acute on Chronic? @ -acute Uncomplicated (without systemic symptoms) or Complicated (systemic symptoms)? @ -uncomplicated Side effects of treatment? @ -No Exacerbation, Progression, or Severe Exacerbation? @ -No Poses a threat to life or bodily function? How? (Chest pain, [place], [place], pneumonia, PE, COPD, DKA, ARF, appy, cholecystitis, CVA, Diverticulitis, Homicidal, Suicidal, threat to staff... and all critical care pts) @ -No - Lab Data Result diagrams: 01/19/24 11:23 01/19/24 11:23 Lab Results 01/19/24 01/19/24 01/19/24 Range/Units 11:23 11:23 11:23 WBC 9.8 (3.8-10.6) k/uL RBC 4.42 (3.80-5.40) m/uL Hgb 13.4 (11.4-16.0) gm/dL Hct 40.5 (34.0-46.0) % MCV 91.7 (80.0-100.0) fL MCH 30.4 (25.0-35.0) pg MCHC 33.2 (31.0-37.0) g/dL RDW 12.8 (11.5-15.5) % Plt Count 390 (150-450) k/uL MPV 7.2 Neutrophils % 72 % Lymphocytes % 14 % Monocytes % 4 % Eosinophils % 8 % Basophils % 1 % Neutrophils # 7.1 (1.3-7.7) k/uL Lymphocytes # 1.4 (1.0-4.8) k/uL Monocytes # 0.4 (0-1.0) k/uL Eosinophils # 0.8 H (0-0.7) k/uL Basophils # 0.1 (0-0.2) k/uL Sodium 139 (137-145) mmol/L Potassium 4.1 (3.5-5.1) mmol/L Chloride 107 (98-107) mmol/L Carbon Dioxide 23 (22-30) mmol/L Anion Gap 9 mmol/L BUN 9 (7-17) mg/dL Creatinine 0.65 (0.52-1.04) mg/dL Est GFR (CKD-EPI)AfAm >90 (>60 ml/min/1.73 sqM) Est GFR (CKD-EPI)NonAf >90 (>60 ml/min/1.73 sqM) Glucose 131 H (74-99) mg/dL POC Glucose (mg/dL) (70-110) mg/dL POC Glu Pallet Rectifier ID Calcium 9.9 (8.4-10.2) mg/dL Total Bilirubin 0.9 (0.2-1.3) mg/dL AST 22 (14-36) U/L ALT 14 (4-34) U/L Alkaline Phosphatase 82 (38-126) U/L Ammonia (<30) umol/L Total Protein 7.9 (6.3-8.2) g/dL Albumin 4.8 (3.5-5.0) g/dL Urine Color Colorless Urine Appearance Clear (Clear) Urine pH 7.0 (5.0-8.0) Ur Specific [place] 1.014 (1.001-1.035) Urine Protein Negative (Negative) Urine Glucose (UA) Negative (Negative) Urine Ketones 1+ H (Negative) Urine Blood Negative (Negative) Urine Nitrite Negative (Negative) Urine Bilirubin Negative (Negative) Urine Urobilinogen <2.0 (<2.0) mg/dL Ur Leukocyte Esterase Small H (Negative) Urine RBC 1 (0-5) /hpf Urine WBC 12 H (0-5) /hpf Ur Squamous Epith Cells 7 H (0-4) /hpf Urine Bacteria Rare H (None) /hpf Urine Mucus Occasional H (None) /hpf Urine HCG, Qual (Not Detectd) 01/19/24 01/19/24 01/19/24 Range/Units 11:23 11:23 13:35 WBC (3.8-10.6) k/uL RBC (3.80-5.40) m/uL Hgb (11.4-16.0) gm/dL Hct (34.0-46.0) % MCV (80.0-100.0) fL MCH (25.0-35.0) pg MCHC (31.0-37.0) g/dL RDW (11.5-15.5) % Plt Count (150-450) k/uL MPV Neutrophils % % Lymphocytes % % Monocytes % % Eosinophils % % Basophils % % Neutrophils # (1.3-7.7) k/uL Lymphocytes # (1.0-4.8) k/uL Monocytes # (0-1.0) k/uL Eosinophils # (0-0.7) k/uL Basophils # (0-0.2) k/uL Sodium (137-145) mmol/L Potassium (3.5-5.1) mmol/L Chloride (98-107) mmol/L Carbon Dioxide (22-30) mmol/L Anion Gap mmol/L BUN (7-17) mg/dL Creatinine (0.52-1.04) mg/dL Est GFR (CKD-EPI)AfAm (>60 ml/min/1.73 sqM) Est GFR (CKD-EPI)NonAf (>60 ml/min/1.73 sqM) Glucose (74-99) mg/dL POC Glucose (mg/dL) 179 H (70-110) mg/dL POC Glu Pallet Rectifier ID Ilsa Landaverde Calcium (8.4-10.2) mg/dL Total Bilirubin (0.2-1.3) mg/dL AST (14-36) U/L ALT (4-34) U/L Alkaline Phosphatase (38-126) U/L Ammonia <9 (<30) umol/L Total Protein (6.3-8.2) g/dL Albumin (3.5-5.0) g/dL Urine Color Urine Appearance (Clear) Urine pH (5.0-8.0) Ur Specific [place] (1.001-1.035) Urine Protein (Negative) Urine Glucose (UA) (Negative) Urine Ketones (Negative) Urine Blood (Negative) Urine Nitrite (Negative) Urine Bilirubin (Negative) Urine Urobilinogen (<2.0) mg/dL Ur Leukocyte Esterase (Negative) Urine RBC (0-5) /hpf Urine WBC (0-5) /hpf Ur Squamous Epith Cells (0-4) /hpf Urine Bacteria (None) /hpf Urine Mucus (None) /hpf Urine HCG, Qual Not Detected (Not Detectd) Disposition Clinical Impression: UTI (urinary tract infection), Acute anxiety Disposition: HOME SELF-CARE Condition: Good Instructions (If sedation given, give patient instructions): Urinary Tract Infection in Women (ED), Generalized Anxiety Disorder (ED) Additional Instructions: Complete full course of antibiotics as prescribed. Return to the emergency department if symptoms worsen or not improved. Recommend follow-up with a primary care provider next week for reevaluation of medications. Prescriptions: Cephalexin [Keflex] 500 mg PO Q6HR #40 cap Is patient prescribed a controlled substance at d/c from ED?: No Referrals: oJrge Negro MD [REFERRING] - 1-2 days Time of Disposition: 13:05
[2024-01-19] MEDS: SODIUM CHLORIDE 0.9% 1,000 ML IV STA (11:31)
[2024-01-19] MEDS: ONDANSETRON 4 MG/2 ML VIAL IVP STA (11:33)
[2024-01-19] MEDS: diphenhydrAMINE 50 MG/ML 1 ML VIAL IVP STA (11:33)
[2024-01-19 11:37] LABS: Basophils # (A) 0.1 k/uL (0-0.2); Basophils % (A) 1 %; Eosinophils # (A) 0.8 k/uL (0-0.7); Eosinophils % (A) 8 %; HCT 40.5 % (34.0-46.0); HGB 13.4 gm/dL (11.4-16.0); Lymphocytes # (A) 1.4 k/uL (1.0-4.8); Lymphocytes % (A) 14 %; MCH 30.4 pg (25.0-35.0); MCHC 33.2 g/dL (31.0-37.0); MCV 91.7 fL (80.0-100.0); Mean Platelet Volume 7.2; Monocytes # (A) 0.4 k/uL (0-1.0); Monocytes % (A) 4 %; Neutrophils # (A) 7.1 k/uL (1.3-7.7); Neutrophils % (A) 72 %; Platelet Count 390 k/uL (150-450); RBC 4.42 m/uL (3.80-5.40); RDW 12.8 % (11.5-15.5); WBC 9.8 k/uL (3.8-10.6)
[2024-01-19 11:42] LABS: Appearance,Urine Clear (Clear); Bacteria,Urine Rare /hpf; Bilirubin,Urine Negative (Negative); Blood,Urine Negative (Negative); Color,Urine Colorless; Glucose,Urine (UA) Negative (Negative); Ketones,Urine 1+ (Negative); Leukocyte Esterase,Urine Small (Negative); Mucus,Urine Occasional /hpf; Nitrite,Urine Negative (Negative); Protein,Urine Negative (Negative); RBC,Urine 1 /hpf (0-5); Specific Gravity,Urine 1.014 (1.001-1.035); Squamous Epithelial Cell,Urine 7 /hpf (0-4); Urobilinogen,Urine <2.0 mg/dL (<2.0); WBC,Urine 12 /hpf (0-5)
[2024-01-19 12:03] LABS: ALT 14 U/L (4-34); AST 22 U/L (14-36); African American GFR (CKD) >90 (>60 ml/min/1.73 sqM); Albumin 4.8 g/dL (3.5-5.0); Alkaline Phosphatase 82 U/L (38-126); Anion Gap 9 mmol/L; Blood Urea Nitrogen 9 mg/dL (7-17); Calcium 9.9 mg/dL (8.4-10.2); Carbon Dioxide 23 mmol/L (22-30); Chloride 107 mmol/L (98-107); Glucose 131 mg/dL (74-99); Non-African American GFR(CKD) >90 (>60 ml/min/1.73 sqM); Potassium 4.1 mmol/L (3.5-5.1); Sodium 139 mmol/L (137-145); Total Bilirubin 0.9 mg/dL (0.2-1.3); Total Protein 7.9 g/dL (6.3-8.2)
--- NOTE | 2024-01-19 12:54 | CT ---
EXAMINATION TYPE: CT abdomen pelvis w con CT DLP: 723.4 mGycm, Automated exposure control for dose reduction was used. DATE OF EXAM: 01/19/2024 12:25 PM COMPARISON: None CLINICAL INDICATION:Female, 23 years old with history of abdominal pain, left flank pain; Left flank pain, Abdominal pain TECHNIQUE: Axial CT abdomen pelvis w con;Sagittal and coronal reformats were created on a separate w orkstation. Contrast used:100 ml mL of Isovue 300 with IV Contrast, (none if empty) Oral contrast used: without Oral Contrast (none if empty) FINDINGS: LOWER CHEST: Unremarkable ABDOMEN LIVER: Unremarkable GALLBLADDER AND BILE DUCTS: Unremarkable. PANCREAS: Unremarkable. SPLEEN: Unremarkable. ADRENAL GLANDS: Unremarkable. KIDNEYS AND URETERS: No evidence of hydronephrosis or renal calculus. The ureters are unremarkable. Calcific densities distal left ureter thought to be phleboliths. PELVIS BLADDER: Incompletely distended mild circumferential wall thickening up to 5 mm. REPRODUCTIVE: Intrauterine device seen within the endometrium. ABDOMEN & PELVIS STOMACH AND BOWEL: No evidence of bowel obstruction. PERITONEUM/RETROPERITONEUM: No evidence of pneumoperitoneum or free fluid. VASCULATURE: No evidence of aortic aneurysm. MUSCULOSKELETAL: No acute osseous abnormalities LYMPH NODES: No gross evidence for lymphadenopathy. SOFT TISSUE/ABDOMINAL WALL: Unremarkable IMPRESSION: 1. No evidence for obstructive uropathy or calculus. 2. Mild bladder wall thickening possibly due to underdistention correlate with urinalysis. 3. IUD within the endometrium.
[2024-01-19] MEDS: METOCLOPRAMIDE 5 MG/ML 2 ML VIAL IVP STA (13:22)
[2024-01-19] MEDS: cefTRIAXone IN SWFI 1,000 MG/10 ML SYRINGE IVP STA (13:27)
[2024-01-19 13:37] LABS: Glucose,Whole Blood 179 mg/dL (70-110)
[2024-01-19 13:47] VITALS: BP 115/71; PULSE 93; RESP 16; TEMP 99
== END 2024-01-19 13:48 | disposition home or self-care (01) ==
LOC: EC 10:28
DX: N39.0 Urinary tract infection, site not specified (principal); R10.31 Right lower quadrant pain; R10.32 Left lower quadrant pain; F41.9 Anxiety disorder, unspecified; F17.290 Nicotine dependence, other tobacco product, uncomplicated; Z88.2 Allergy status to sulfonamides; Z88.8 Allergy status to other drugs, medicaments and biological substances
CPT/HCPCS: 36415; 80053; 82140; 85025; 81001; 81025; 74177; 99284; 96374; 96375 ×3; 96361 ×2; J1200; J2765; J2405; J0696; Q9967